=== PATIENT | female | born 1960 | race African-American/Black ===

== ENCOUNTER 2018-09-24 23:32 | Emergency (ER) | payer OTHER ==
[~2018-09-24] VITALS: Ht 165.1 cm; Wt 86.2 kg
[2018-09-25 01:08] VITALS: BP 160/92
== END 2018-09-25 01:08 | disposition home or self-care (01) ==
LOC: ER
DX: H61.23 Impacted cerumen, bilateral (principal); F17.210 Nicotine dependence, cigarettes, uncomplicated